=== PATIENT | female | born 1975 | race Caucasian/White ===

== ENCOUNTER 2022-08-26 15:55 | Emergency (ER) | payer OTHER, SELFPAY ==
[2022-08-26] VITALS (12 sets, daily range): BP systolic 92–132; BP diastolic 55–94; PULSE 72–121; RESP 19; TEMP 37; O2SAT 96–100
--- NOTE | ~2022-08-26 | XR_ITS ---
EXAMINATION: XR chest 1V portable Exam Date/Time: 08/26/2022 17:37 CDT HISTORY: Near syncope FOR 2 WKS, WEAKNESS, COPD Comparison: None. RESULT: Lines, tubes, and devices: None. Lungs and pleura: Clear. Cardiomediastinal silhouette: Normal. Other: No acute osseous or upper abdominal finding. IMPRESSION: No acute cardiopulmonary process. Reviewed, dictated and finalized at location K.
--- NOTE | 2022-08-26 16:27 | PC.NURSE ---
pt states that her pmd told her to come to er because her lithium levels are low. states she has had 6 syncopal episodes in past 2 days. states when she stands up she gets really dizzy and passes out. states she is out for approx 3 min. c/o abd pain and nausea.
--- NOTE | 2022-08-26 17:34 | ECG_ITS ---
Measurements Intervals [place] Rate: 80 P: 64 FL: 146 QRS: -28 QRSD: 86 T: 30 QT: 410 QTc: 476 Interpretive Statements SINUS RHYTHM POOR R-WAVE PROGRESSION LEFT AXIS DEVIATION [QRS AXIS < -20] ABNORMAL ECG NO PREVIOUS ECG AVAILABLE FOR COMPARISON Electronically Signed On 08-27-2022 8:12:05 CDT by Derrell Brock M.D.
[2022-08-26] MEDS: SODIUM CHLORIDE 0.9% IV 2,000 ML 999 ML IV CONT (17:45)
--- NOTE | 2022-08-26 17:56 | ED.GENADULT ---
HPI - General Adult General Chief complaint: Recheck/Abnormal Lab/Rx Stated complaint: Dizzy Time Seen by Provider: 08/26/22 16:47 History of Present Illness HPI narrative: This is a 47-year-old female with reported history of bipolar disorder, who presents emergency department complaining of lightheadedness and low lithium level. Patient states over the past 2 weeks she has had intermittent vomiting, nausea, paresthesias of all extremities, intermittent cramping abdominal pain and lightheadedness. She denies known sick contacts or recent change in her medications. She states she was contacted by her primary care doctor and told that she had a low lithium level requiring evaluation in the emergency department. She denies bleeding from any source, chest pain or shortness of breath Related Data Allergies Allergy/AdvReac Type Severity Reaction Status Date / Time morphine Allergy Severe Confusion Verified 08/23/17 10:05 Review of Systems Review of Systems: CONSTITUTIONAL: Denies fever, chills, or sweats. CARDIOVASCULAR: Denies chest pain, palpitations, or edema. RESPIRATORY: Denies cough or dyspnea. GASTROINTESTINAL: Cramping abdominal pain, nausea and vomiting denies diarrhea. GENITOURINARY: Denies dysuria or hematuria. SKIN: Denies rash or itching. MUSCULOSKELETAL: Denies back pain, joint pain, or myalgia. NEUROLOGIC: Lightheadedness, diffuse paresthesias denies headache, numbness, or weakness. PSYCHIATRIC: Anxiety denies depression. [facility] Past Medical History Medical History (Updated 08/26/22 @ 18:20 by Darwin Madrid MD) Bipolar disorder Social History Social History (Updated 08/26/22 @ 18:01 by Darwin Madrid MD) Smoking status: Current some day smoker Tobacco type: e-cigarettes/vaping Alcohol intake: current Drinks per week: 3 Substance use: current Substance use type: marijuana Exam Narrative: GENERAL: Well-developed, well-nourished, appears anxious HEAD: Normocephalic, atraumatic. EYES: PERRLA and EOMI. ENT: Nares clear, no rhinorrhea or epistaxis. Mucous membranes moist. Oropharynx without tonsillar hypertrophy exudate or other lesions. CHEST: Clear to auscultation. No respiratory distress. No wheezes rales or rhonchi HEART: Regular rate and rhythm. No murmur heard. Normal peripheral pulses. ABDOMEN: Soft, diffuse mild tenderness to palpation without rebound or guarding, nondistended, normal active bowel sounds. EXTREMITIES: Normal range of motion. No edema. SKIN: Warm, dry, no rash. NEURO: No focal deficits. Alert and oriented x3. Strength 5/5 in all extremities, sensation intact bilaterally, no noted ataxia PSYCH: Anxious mood and affect Course Course Emergency Course: 19:38 - Chemistries demonstrate hypokalemia at 2.7, chloride of 92 and mild AST ALT elevations, consistent with dehydration. UA not concerning for urinary tract infection lithium level decreased at 0.5. CBC demonstrates mildly elevated hemoglobin at 15.7 but is otherwise unremarkable. On reevaluation, the patient states her nausea is improved and she is comfortable with discharge. She states she has Zofran at home. Will discharge with potassium supplementation and recommendation for primary care follow-up. Discussed return and emergency precautions including signs/symptoms of acute abdomen and respiratory distress. The patient voiced understanding and is comfortable with the plan. All questions answered to her satisfaction. Vital Signs Vital signs: Vital Signs Temperature 98.6 F 08/26/22 16:15 Pulse Rate 121 H 08/26/22 16:15 Respiratory Rate 08/26/22 16:15 Blood Pressure 132/94 H 08/26/22 16:15 Pulse Oximetry 97 08/26/22 16:15 Temperature 98.6 F 08/26/22 16:15 Pulse Rate 121 H 08/26/22 16:15 Respiratory Rate 19 08/26/22 16:15 Blood Pressure 132/94 H 08/26/22 16:15 Pulse Oximetry 97 08/26/22 16:15 Medical Decision Making MDM Narrative Medical decision
[2022-08-26 18:00] LABS: Basophils Absolute Auto 0.1 K/mm3 (0.0-0.1); Basophils Percent Auto 0.5 % (0.2-1.2); Eosinophils Absolute Auto 0.1 K/mm3 (0-0.3); Hematocrit 44.4 % (37.0-47.0); Hemoglobin 15.7 g/dL (12.0-15.0); Immature Granulocyte Absolute 0.04 K/mm3 (0.00-0.031); Immature Granulocyte Percent A 0.4 % (0-0.5); Lymphocytes Absolute Auto 2.11 K/mm3 (0.9-3.2); Lymphocytes Percent Auto 21.1 % (18.3-44.2); Mean Corpuscular HGB Conc 35.4 g/dl (32-36); Mean Corpuscular Hemoglobin 36.6 pg (26-34); Mean Corpuscular Volume 103.5 fl (80-100); Mean Platelet Volume 10.9 fl (7.4-10.4); Monocytes Absolute Auto 0.3 K/mm3 (0.1-0.6); Monocytes Percent Auto 3.3 % (2.6-8.5); Neutrophils Absolute Auto 7.4 K/mm3 (1.3-6.7); Neutrophils Percent Auto 73.7 % (45.5-73.1); Platelet Count Result 190 k/mm3 (150-375); Red Blood Count 4.29 M/mm3 (4.2-5.4); Red Cell Distribution Width 17.1 % (11.5-14.5)
[2022-08-26 18:11] LABS: Magnesium 1.6 mg/dL (1.6-2.3)
[2022-08-26 18:17] LABS: Alanine Aminotransferase 79 U/L (6-35); Albumin Level 3.2 g/dL (3.5-5.1); Alkaline Phosphatase 127 U/L (38-126); Anion Gap 6 mmol/L (8-16); Aspartate Amino Transferase 141 U/L (14-36); Bilirubin,Total 2.2 mg/dL (0.2-1.3); Blood Urea Nitrogen 7 mg/dL (7-17); Calcium 8.6 mg/dL (8.4-10.2); Carbon Dioxide 36 mmol/L (22-30); Chloride 92 mmol/L (98-107); Estimated Glomerular Filt Rate > 60; Glucose 93 mg/dL (65-110); Potassium 2.7 mmol/L (3.4-5.0); Sodium 134 mmol/L (137-145)
[2022-08-26 18:26] LABS: Lithium 0.5 mmol/L (0.6-1.2)
[2022-08-26] MEDS: POTASSIUM CHLORIDE 20 MEQ PACKET (FOR LIQUID) 40 MEQ PO (18:36)
[2022-08-26 19:21] LABS: Appearance Urine Cloudy (Clear); Bacteria Urine None Seen /hpf; Bilirubin Urine Negative (Negative); Blood Urine Negative (Negative); Color Urine Yellow (Yellow); Glucose Urine UA Negative (Negative); Ketones Urine Trace mg/dL (Negative); Leukocyte Esterase Ur Trace LEU/UL (Negative); Need Manual Microscopic Reviewed; Nitrate Urine Negative (Negative); Non Pathogenic Casts 0-2; Protein Urine Negative (Negative); RBC Urine 0-2 /hpf (0-2); Specific Grav Ur 1.006 (1.001-1.035); Squamous Epithelial Cell Urine Moderate /hpf (Few); WBC Urine 0-5 /hpf; pH Urine 7.5 (5.0-9.0)
[2022-08-26 19:22] LABS: Add Urine Microscopic? YES
[2022-08-26] MEDS: KCL 20 MEQ/SW 100 ML 100 ML 50 MEQ IVPB (19:46)
[2022-08-26] MEDS: ONDANSETRON INJ 4 MG/2 ML VIAL IV PUSH (19:55)
[2022-08-26] MEDS: SODIUM CHLORIDE 0.9% IV 250 ML (21:10)
== END 2022-08-26 22:08 | disposition home or self-care (01) ==
PROVIDERS: Emergency Provider Preventive Medicine Aerospace Medicine; PCP Internal Medicine
DX: R42 Dizziness and giddiness (principal); R11.2 Nausea with vomiting, unspecified; E87.6 Hypokalemia; F31.9 Bipolar disorder, unspecified; F17.290 Nicotine dependence, other tobacco product, uncomplicated
CPT/HCPCS: 36415; 71045; 80053; 80178; 81001; 83735; 85025; 93005; 96361; 96365; 96375; 99284; A9270; J2405; J3480; J7030; J7050